=== PATIENT | female | born 1945 | race Caucasian/White ===

== ENCOUNTER 2021-01-15 12:26 | Emergency (ER) | payer MEDICARE, SELFPAY ==
--- NOTE | ~2021-01-15 | XR_ITS ---
EXAMINATION: XR wrist LT min 3V DATE: 01/15/2021 13:23 INDICATION: Left wrist pain. TECHNIQUE: 4 views of left wrist were obtained. COMPARISON: None. FINDINGS: There is a comminuted fracture of distal radius with involvement of the distal articular medrano rface. The main distal fracture fragment demonstrates impaction and dorsal angulation. There is 7 deg luigi dorsal tilt of the distal articular surface. There is an avulsion fracture of the ulnar styloid. 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 IMPRESSION: 1. Comminuted fracture of distal radius. 2. Avulsion fracture of the ulnar styloid. Reviewed, dictated and finalized at location A.
--- NOTE | ~2021-01-15 | XR_ITS ---
EXAMINATION: XR hand LT min 3V DATE: 01/15/2021 13:22 INDICATION: Left hand pain. TECHNIQUE: 3 views of left hand were obtained. COMPARISON: None. FINDINGS: There is a comminuted fracture of distal radius. The main distal fracture fragment demonstr ates impaction and varus angulation. There is 9 degrees dorsal tilt of the distal articular surface. There is an avulsion fracture of the ulnar styloid. Osteopenia is noted. 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 IMPRESSION: 1. Comminuted fracture of distal radius. 2. Avulsion fracture of the ulnar styloid. Reviewed, dictated and finalized at location A.
[2021-01-15 12:38] VITALS: BP 165/93; PULSE 69; RESP 19; TEMP 36.6; O2SAT 99
--- NOTE | 2021-01-15 13:02 | ED.UPPEXIN ---
HPI - Extremity Injury (Upper) General Chief Complaint: Extremity Injury, Upper Stated Complaint: Fall/ L wrist pain Time Seen by Provider: 01/15/21 12:46 Source: patient Mode of arrival: ambulatory Limitations: no limitations History of Present Illness HPI narrative: This is a 75-year-old female that presents the emergency department after a fall today with left wrist pain. Reports she slipped and fell about a foot off of a porch. Reports she landed in grass. She caught herself with her left wrist. Since the injury she has had pain and swelling in the wrist. She did hit her head on the grass, but denies any loss of consciousness. Denies any other injuries or prodromal symptoms. Reports decreased range of motion in the wrist due to pain. Denies numbness. Related Data Home Medications Medication Instructions Recorded Confirmed amlodipine 5 mg PO DAILY 01/15/21 metoprolol succinate 100 mg PO DAILY 01/15/21 omeprazole 20 mg PO DAILY 01/15/21 Allergies Allergy/AdvReac Type Severity Reaction Status Date / Time povidone-iodine AdvReac Hives Verified 01/15/21 12:47 [From Betadine] soap [From Betadine] AdvReac Hives Verified 01/15/21 12:47 Review of Systems Review of Systems: Narrative: CONSTITUTIONAL: Denies fever EYES: Denies visual changes GASTROINTESTINAL: Denies vomiting MUSCULOSKELETAL: Reports joint pain, and myalgia. NEUROLOGIC: Denies numbness, or weakness. All systems reviewed & are unremarkable except as noted in HPI and below PMFSH Past Medical History Medical History (Updated 01/15/21 @ 14:34 by Maria M Workman PA-C) History of gastroesophageal reflux (GERD) History of hypertension Exam Narrative: Exam Narrative: GENERAL: Well-appearing, well-nourished, and in no acute distress. HEAD: Normocephalic, atraumatic. EYES: PERRLA and EOMI. ENT: Nares clear, no rhinorrhea or epistaxis. Mucous membranes moist. Oropharynx without tonsillar hypertrophy exudate or other lesions. Bilateral TMs pearly hidalgo non-bulging NECK: Supple. No adenopathy or masses. No midline cervical spine tenderness CHEST: Clear to auscultation. No respiratory distress. No wheezes rales or rhonchi HEART: Regular rate and rhythm. No murmur heard. Normal peripheral pulses. BACK: No midline thoracic or lumbar spine tenderness EXTREMITIES: Normal range of motion, except decreased ROM in the left wrist due to pain. Mild to moderate edema about the left wrist, tender to palpation. Normal radial pulses. Normal sensation SKIN: Warm, dry, no rash. NEURO: No focal deficits. Alert and oriented x3. Cranial nerves II through XII grossly intact PSYCH: Normal mood and affect Course Vital Signs Vital signs: Vital Signs Temperature 97.8 F 01/15/21 12:38 Pulse Rate 69 01/15/21 12:38 Respiratory Rate 01/15/21 12:38 Blood Pressure 165/93 H 01/15/21 12:38 Pulse Oximetry 99 01/15/21 12:38 Temperature 97.8 F 01/15/21 12:38 Pulse Rate 69 01/15/21 12:38 Respiratory Rate 01/15/21 12:38 Blood Pressure 165/93 H 01/15/21 12:38 Pulse Oximetry 99 01/15/21 12:38 Procedures Orthopedic Splinting/Casting Injury #1: Splinting/Casting Date: 01/15/21 Splinting/Casting Time: 14:31 Side: left Upper Extremity Injury Location: wrist Upper Extremity Immobilizer: volar splint Splint: customized in ED OCL: volar Pre-Procedure Neuro Vascular Exam: normal Post-Procedure Neuro Vascular Exam: normal MDM - Extremity Injury (Upper) MDM Narrative Medical decision making narrative: Patient presents to the emergency department for left wrist pain after an injury today. Patient slipped and fell. She denies any prodromal symptoms. Denies loss consciousness. She is neurologically intact. Left wrist x-ray shows a comminuted fracture of the distal radius. Also shows avulsion fracture of the ulnar styloid. Patient placed in a splint and will be given orthopedics fo
== END 2021-01-15 14:48 | disposition home or self-care (01) ==
PROVIDERS: Emergency Provider Emergency Medicine; PCP Internal Medicine
DX: S52.592A Other fractures of lower end of left radius, initial encounter for closed fracture (principal); S52.612A Displaced fracture of left ulna styloid process, initial encounter for closed fracture; K21.9 Gastro-esophageal reflux disease without esophagitis; I10 Essential (primary) hypertension; W17.89XA Other fall from one level to another, initial encounter
CPT/HCPCS: 29125; 73110; 73130; 99284

== ENCOUNTER 2021-01-16 13:07 | Outpatient (CLI) | payer MEDICARE, SELFPAY ==
[2021-01-16 16:46] LABS: Vitamin D 25 Hydroxy 34.3 ng/mL
== END 2021-01-16 13:08 | disposition home or self-care (01) ==
PROVIDERS: PCP Internal Medicine; Visit Provider Orthopaedic Surgery
DX: E55.9 Vitamin D deficiency, unspecified (principal)
CPT/HCPCS: 36415; 82306

== ENCOUNTER 2022-06-08 10:55 | Outpatient (CLI) | payer MEDICARE, SELFPAY ==
[2022-06-08 11:16] LABS: Basophils Percent Auto 0.7 % (0.2-1.2); Eosinophils Absolute Auto 0.2 K/mm3 (0-0.3); Eosinophils Percent Auto 3.7 % (0-4.4); Hematocrit 39.5 % (37.0-47.0); Hemoglobin 12.8 g/dL (12.0-15.0); Immature Granulocyte Absolute 0.02 K/mm3 (0.00-0.031); Immature Granulocyte Percent A 0.4 % (0-0.5); Lymphocytes Absolute Auto 1.82 K/mm3 (0.9-3.2); Lymphocytes Percent Auto 33.4 % (18.3-44.2); Mean Corpuscular HGB Conc 32.4 g/dl (32-36); Mean Corpuscular Hemoglobin 30.3 pg (26-34); Mean Corpuscular Volume 93.6 fl (80-100); Mean Platelet Volume 9.5 fl (7.4-10.4); Monocytes Absolute Auto 0.5 K/mm3 (0.1-0.6); Monocytes Percent Auto 9.4 % (2.6-8.5); Neutrophils Absolute Auto 2.9 K/mm3 (1.3-6.7); Neutrophils Percent Auto 52.4 % (45.5-73.1); Platelet Count Result 234 k/mm3 (150-375); Red Blood Count 4.22 M/mm3 (4.2-5.4); Red Cell Distribution Width 13.2 % (11.5-14.5); White Blood Count 5.5 K/mm3 (4.5-10.0)
[2022-06-08 12:01] LABS: Alanine Aminotransferase 20 U/L (6-35); Albumin Level 4.5 g/dL (3.5-5.1); Alkaline Phosphatase 76 U/L (38-126); Anion Gap 10 mmol/L (8-16); Aspartate Amino Transferase 31 U/L (14-36); Bilirubin,Total 0.3 mg/dL (0.2-1.3); Blood Urea Nitrogen 28 mg/dL (7-17); Calcium 9.2 mg/dL (8.4-10.2); Carbon Dioxide 27 mmol/L (22-30); Chloride 104 mmol/L (98-107); Estimated Glomerular Filt Rate 36; Glucose 78 mg/dL (65-110); Sodium 141 mmol/L (137-145)
[2022-06-08 12:08] LABS: Immunoglobulin A 255 mg/dL (70-400); Immunoglobulin G 1123 mg/dL (700-1600); Immunoglobulin M 83 mg/dL (40-230)
[2022-06-11 09:27] LABS: Kappa\\Lambda Light Chains 0.84 (0.26-1.65); Lambda Light Chain 29.4 mg/L (5.7-26.3)
[2022-06-11 19:40] LABS: Alpha 1 Globulin 0.4 g/dL (0.2-0.3); Alpha 2 Globulin 0.9 g/dL (0.5-0.9); Beta 1 Globulin 0.4 g/dL (0.4-0.6)
== END 2022-06-08 10:56 | disposition home or self-care (01) ==
LOC: ANHLAB 10:56
PROVIDERS: PCP Internal Medicine; Visit Provider Internal Medicine Hematology & Oncology
DX: D47.2 Monoclonal gammopathy (principal)
CPT/HCPCS: 36415; 80053; 82784; 83883; 84155; 84165; 85025